=== PATIENT | female | born 2005 | race Caucasian/White ===

== ENCOUNTER 2023-12-10 18:05 | Emergency (ER) | payer BC, SELFPAY ==
--- NOTE | ~2023-12-10 | XR_ITS ---
EXAM: XR ankle RT min 3V, XR foot RT min 3V DATE: 12/10/2023 18:25 HISTORY: Fall, Pain . COMPARISON: None available. FINDINGS: Normal mineralization. No fracture or dislocation. No lytic or blastic lesion. Joint space s are maintained. No erosion or periosteal change. Soft tissues within normal limits. IMPRESSION: No acute osseous finding in the right foot or ankle. Reviewed, dictated and finalized at location K. IMPRESSION: No acute osseous finding in the right foot or ankle.
[2023-12-10 18:08] VITALS: BP 136/77; PULSE 88; RESP 16; TEMP 36.4; O2SAT 97
--- NOTE | 2023-12-10 19:23 | ED.LOWEXIN ---
HPI - Extremity Injury (Lower) General Chief Complaint: Extremity Injury, Lower Stated Complaint: Fall/ R ankle/foot Time Seen by Provider: 12/10/23 19:16 Source: patient Mode of arrival: ambulatory Limitations: no limitations History of Present Illness HPI Narrative: This is a 18-year-old female that presents to the emergency department for right ankle pain after an injury today. Reports she tripped off of a curb. Reports twisting her right ankle. Reports pain, especially at the midfoot. Denies decreased range of motion or numbness. Related Data Allergies Allergy/AdvReac Type Severity Reaction Status Date / Time No Known Allergies Allergy Verified 12/10/23 18:11 Review of Systems Review of Systems: CONSTITUTIONAL: Denies fever MUSCULOSKELETAL: Reports joint pain, and myalgia. NEUROLOGIC: Denies numbness All systems reviewed & are unremarkable except as noted in HPI and below PMFSH Past Medical History Medical History (Updated 12/10/23 @ 19:29 by Brandi Garay PA-C) No active medical problems Social History Social History (Updated 12/10/23 @ 19:26 by Brandi Garay PA-C) Substance use: never Exam Narrative: GENERAL: Well-appearing, well-nourished, and in no acute distress. HEAD: Normocephalic, atraumatic. EYES: EOMI. EXTREMITIES: Normal range of motion. No edema or obvious deformity. Normal DP pulse. Normal sensation SKIN: Warm, dry, no rash. NEURO: No focal deficits. Alert and oriented x3. PSYCH: Normal mood and affect Course Course Emergency Course: Patient and family updated on workup and agree with plan of care Vital Signs Vital signs: Vital Signs Temperature 97.6 F 12/10/23 18:08 Pulse Rate 88 12/10/23 18:08 Respiratory Rate 16 12/10/23 18:08 Blood Pressure 136/77 12/10/23 18:08 Pulse Oximetry 97 12/10/23 18:08 Oxygen Delivery Room Air 12/10/23 18:08 Temperature 97.6 F 12/10/23 18:08 Pulse Rate 88 12/10/23 18:08 Respiratory Rate 16 12/10/23 18:08 Blood Pressure 136/77 12/10/23 18:08 Pulse Oximetry 97 12/10/23 18:08 Oxygen Delivery Room Air 12/10/23 18:08 Procedures Orthopedic Splinting/Casting Injury #1: Splinting/Casting Date: 12/10/23 Splinting/Casting Time: 19:27 Side: right Lower Extremity Injury Location: ankle Lower Extremity Immobilizer: Yasir wrap Splint: prefabricated Pre-Procedure Neuro Vascular Exam: normal Post-Procedure Neuro Vascular Exam: normal Other Orthopedic Equipment: other (patient reports she has crutches at home) MDM - Extremity Injury (Lower) MDM Narrative Medical decision making narrative: Patient presents to the emergency department after a fall today with right foot and ankle pain. She is neurovascularly intact. Right foot and ankle x-rays are without acute osseous abnormalities. Patient placed in YASIR wrap. Reports she has crutches. Instructed on further care of ankle sprain. She is to follow up with PCP. She was given warnings to return to the ER Differential Diagnosis Differential diagnosis: Likely ankle sprain and strain and ankle fracture Imaging Data Radiologist's impression: ITS Impressions Ankle X-Ray 12/10/23 19:01 IMPRESSION: No acute osseous finding in the right foot or ankle. Foot X-Ray 12/10/23 19:01 IMPRESSION: No acute osseous finding in the right foot or ankle. Critical Care Time Critical Care Time Critical Care Time: No Discharge Plan Discharge Clinical Impression: Ankle sprain and strain Patient Disposition: Home, Self-Care Condition: Stable Instructions: Ankle Sprain (ED) Additional Instructions: Return to the ER if you experience fever, redness and swelling of your extremity, numbness or any other symptoms that are concerning to you Wear YASIR wrap and use crutches. No weight on the affected leg until able to bear weight without pain. Ice and elevate extremity. Pain medicat
== END 2023-12-10 19:45 | disposition home or self-care (01) ==
LOC: ANHED 19:35
PROVIDERS: Emergency Provider Physician Assistant; PCP Nurse Practitioner Family
DX: S93.401A Sprain of unspecified ligament of right ankle, initial encounter (principal); S96.911A Strain of unspecified muscle and tendon at ankle and foot level, right foot, initial encounter; W18.43XA Slipping, tripping and stumbling without falling due to stepping from one level to another, initial encounter
CPT/HCPCS: 73610; 73630; 99283